=== PATIENT | female | born 1985 | race Caucasian/White ===

== ENCOUNTER → 2022-05-15 16:15 | Outpatient (CLI) | payer OTHER, SELFPAY ==
--- NOTE | 2022-05-15 16:18 | DI.RAD.S_ITS ---
PROCEDURE: XR WRIST LT MIN 3V INDICATIONS: left hand and wrist pain TECHNIQUE: 4 views of the wrist were acquired. COMPARISON: [facility], , XR HAND LT MIN 3V, 05/15/2022, 16:21. FINDINGS: Bones: No fractures or dislocations. No suspicious bony lesions. Scaphoid view: No visualized fracture. Soft tissues: No suspicious soft tissue calcifications. IMPRESSION: No visualized acute fracture or dislocation. However, if clinical concern and/or pain persist, short interval imaging followup in 7-10 days is recommended, as occult injury cannot be definitively excluded. Dictated by: Renée Stanley M.D. on 05/15/2022 at 16:44 Approved by: Renée Stanley M.D. on 05/15/2022 at 16:44
--- NOTE | 2022-05-15 16:18 | DI.RAD.S_ITS ---
PROCEDURE: XR HAND LT MIN 3V INDICATIONS: left hand and wrist pain TECHNIQUE: 3 views of the hand(s) acquired. COMPARISON: Secondary to PACS connectivity at time of exam, priors may not be available for comparison. FINDINGS: Bones: No fractures or dislocations. Carpal bones are normally aligned. No suspicious bony lesions. Soft tissues: No suspicious soft tissue calcifications. IMPRESSION: No visualized acute fracture or dislocation. However, if clinical concern and/or pain persist, short interval imaging followup in 7-10 days is recommended, as occult injury cannot be definitively excluded. Dictated by: Renée Stanley M.D. on 05/15/2022 at 16:36 Approved by: Renée Stanley M.D. on 05/15/2022 at 16:43
== END ==
PROVIDERS: Referring Provider Physician Assistant; Visit Provider Physician Assistant
DX: M25.532 Pain in left wrist (principal); M79.642 Pain in left hand
CPT/HCPCS: 73110; 73130